=== PATIENT | male | born 1980 | race Caucasian/White ===

== ENCOUNTER → 2018-06-24 16:35 | Outpatient (CLI) | payer OTHER, SELFPAY | PROVIDERS: Visit Provider Physician Assistant | DX: J02.9 Acute pharyngitis, unspecified (principal) | CPT/HCPCS: 87070 ==

== ENCOUNTER 2018-06-25 09:51 | Emergency (ER) | payer OTHER, SELFPAY ==
[2018-06-25 10:07] VITALS: BP 158/84; PULSE 78; RESP 18; TEMP 36.7; O2SAT 100
--- NOTE | 2018-06-25 11:25 | PC.NURSE ---
pt reports sorethoat for 1.5 week, increasing pain, worsen with swallowing. seen at [facility] yesterday, strep negative, pt reports, not sleeping due to pain, today with one episode of coughing up bright red blood (small amount), also noted left lymph node swelling, ear preassure.
--- NOTE | 2018-06-25 12:09 | ED.URI ---
HPI - URI/Sore Throat <Jazmin Selby PA-C - Last Filed: 06/25/18 14:27> General Chief Complaint: Upper Respiratory Symptoms Stated Complaint: Bloody mucus, sore throat Time Seen by Provider: 06/25/18 12:09 Source: patient Mode of arrival: ambulatory Limitations: no limitations History of Present Illness HPI Narrative: This healthy 37-year-old male returns due to worsening left-sided sore throat and left ear discomfort. He states that about 10 days ago he came down with a milder, more scratchy sore throat. He states he was bringing up a little bit of greenish mucus in the mornings, thought this would be atypical cold. He has had no daytime cough. He did has not had any nasal congestion or sinus pain. He woke morning with a much more severe ?razor blade? sore throat that felt like it was behind his tonsils. He states it is been harder to swallow and sleep due to the pain. He states that he does not have body aches. He denies dyspnea or wheeze. He brought up a little bit of blood tinge with the mucus this morning but has not had increased cough. He states that he did have some sweats last night but no fever this morning when he checked his temperature. He states that he traveled by air domestically a few weeks ago, and then last week, and actually came home due to the throat pain. He denies any other new symptoms such as rash. He was seen at the walk-in clinic yesterday and rapid strep was negative, culture sent to the lab is still pending. He states that they advised him to come back over the weekend if worsening and was concerned about the blood. Related Data Previous Rx's Medication Instructions Recorded azithromycin [Zithromax] See Rx Instructions .ROUTE 06/25/18 .COMPLEX #6 tab lidocaine HCl [Lidocaine Viscous] 10 ml PO Q4HR PRN #150 ml 06/25/18 Allergies Allergy/AdvReac Type Severity Reaction Status Date / Time No Known Drug Allergies Allergy Verified 06/24/18 14:57 Review of Systems <NAIMA Corey Last Filed: 06/25/18 14:27> Review of Systems ROS Unobtainable: All systems reviewed & are unremarkable except as noted in HPI and below PFSH <Jazmin Selby PA-C - Last Filed: 06/25/18 14:27> Medical History Healthy adult male (Chronic) No pertinent family history (Chronic) Surgical History Lesion of parotid gland (Resolved) Status post knee surgery (Resolved) No pertinent past surgical history (Inactive) Social History Smoking Status: Never smoker Social History Smoking Status: Never smoker Exam <Jazmin Selby PA-C - Last Filed: 06/25/18 14:27> Narrative Exam Narrative: GENERAL APPEARANCE: Patient sitting comfortably, in no distress. HEAD: No sinus TTP. EYES: PERRL, EOMI. EARS: Normal auditory canals, TMS intact with normal light reflex on the right, left is retracted and erythematous ORAL CAVITY: Normal oropharynx. THROAT: Erythematous without exudate NECK/THYROID: Neck supple, full range of motion, shotty tender anterior cervical lymphadenopathy, more prominent on the left. No posterior nodes LUNGS: Clear to auscultation bilaterally, no cough on exam. HEART: RRR without murmur, nl S1, S2, no S3 or S4. DERMATOLOGIC: No exanthem Initial Vital Signs Initial Vital Signs: Vital Signs Temperature 98.0 F 06/25/18 10:07 Pulse Rate 78 06/25/18 10:07 Respiratory Rate 18 06/25/18 10:07 Blood Pressure 158/84 H 06/25/18 10:07 Pulse Oximetry 100 06/25/18 10:07 <Barbara Santoyo DO - Last Filed: 06/26/18 07:35> Initial Vital Signs Initial Vital Signs: Vital Signs Temperature 98.0 F 06/25/18 10:07 Pulse Rate 78 06/25/18 10:07 Respiratory Rate 18 06/25/18 10:07 Blood Pressure 158/84 H 06/25/18 10:07 Pulse Oximetry 100 06/25/18 10:07 Course <Jazmin Selby PA-C - Last Filed: 06/25/18 14:27> Vital Signs - 8 hr 06/25/18 10:07 06/25/18 12:44 Temperature 98.0 F Pulse Rate 78 68 Respiratory Rate 18 16 Blood Pressure 158/84 H 129/84 Pulse Oximetry 100 99 <Barbara Santoyo DO - Last Filed: 06/26/18 07:35> Vital Signs - 8 hr 06/25/18 10:07 06/25/18 12:44 Temperature 98.0 F Pulse Rate 78 68 Respiratory Rate 18 16 Blood Pressure 158/84 H 129/84 Pulse Oximetry 100 99 Discharge Plan Departure Patient Disposition: Home Clinical Impression: Otitis media Qualifiers: Otitis media type: unspecified Chronicity: acute Qualified Code(s): H66.90 - Otitis media, unspecified, unspecified ear Pharyngitis Qualifiers: Pharyngitis/tonsillitis etiology: unspecified etiology Qualified Code(s): J02.9 - Acute pharyngitis, unspecified Discharge Date/Time: 06/25/18 12:45 Interventions: ED Discharge Assessment Last Done: 06/25/18 12:44 Instructions: Middle Ear Infection, DI for Pharyngitis/Tonsillopharyngitis -- Adult Activity Restrictions/Additional Instructions: As we talked about, you should return if you have any acutely worsening symptoms or new symptoms such as difficulty breathing or high fever not responding to rekl-[id number] medicines. I suspect that your initial symptoms were due to a virus, however it is not clear whether the new discomfort in your ear and left side of your throat are a bacterial infection on top of this, so it is reasonable to try an antibiotic. I have sent in a prescription for antibiotic to [facility] for you as well as some topical anesthetic to use for her throat to make it easier to eat and swallow. In addition, please pickler helper some [id number] naproxen (Aleve), and you can take 2 tablets twice daily to help with pain and inflammation. If you are not feeling better in the next 5 days, please contact your insurance for a referral to a local PCP or follow up at the walk in clinic if you prefer Prescriptions: New azithromycin [Zithromax] 250 mg tablet See Rx Instructions .ROUTE .COMPLEX Qty: 6 RF: 0 lidocaine HCl [Lidocaine Viscous] 2 % solution 10 ml PO Q4HR PRN (Reason: sore throat) Qty: 150 RF: 0 <Barbara Santoyo DO - Last Filed: 06/26/18 07:35> Cosign ED Attending Cosvarunature Attestation: I was immediately available in the department for consultation. Documentation has been reviewed. I agree with assessment and plan.
[2018-06-25 12:44] VITALS: BP 129/84; PULSE 68; RESP 16; O2SAT 99
== END 2018-06-25 12:45 | disposition home or self-care (01) ==
PROVIDERS: Emergency Provider Internal Medicine
DX: H66.90 Otitis media, unspecified, unspecified ear (principal); J02.9 Acute pharyngitis, unspecified
CPT/HCPCS: 99282; 99283

== ENCOUNTER → 2018-12-13 10:12 | Outpatient (CLI) | payer OTHER, SELFPAY ==
--- NOTE | 2018-12-13 | DI.CT.S_ITS ---
PROCEDURE: CT SOFT TISSUE NECK W CON INDICATIONS: Glossodynia TECHNIQUE: After the administration of intravenous contrast, 3.0 mm axial sections acquired from the sella to the aortic arch. Additional oblique axial 3.0 mm sections acquired through the pharynx. 3 mm thick coronal and sagittal reformats were generated. For radiation dose reduction, the following was used: automated exposure control. COMPARISON: None. FINDINGS: Image quality: Excellent. Lymph nodes: No enlarged lymph nodes seen throughout the neck. Vessels: Visualized vasculature appears patent. Neck spaces: In this patient with this given history, scrutiny is given to the tongue. No significant abnormality of the tongue can be seen. The oropharynx, nasopharynx, and pharynx demonstrate no mucosal lesions. The vocal cords, false vocal cords, pyriform sinuses, epiglottis, and the vallecula all appear normal. Extramucosal spaces appear unremarkable. Glands: The parotid and submandibular glands appear normal. Thyroid gland demonstrates no significant CT abnormality. Miscellaneous: Visualized brain and orbits appear normal. Lung apices appear clear. Superficial soft tissues appear normal. Bones: No suspicious bony lesions. Visualized sinuses and mastoids appear unremarkable. IMPRESSION: Unremarkable examination, without CT abnormality of the tongue identified. Dictated by: Micky Williamson M.D. on 12/13/2018 at 11:31 Approved by: Micky Williamson M.D. on 12/13/2018 at 11:33
== END ==
PROVIDERS: Visit Provider Specialist
DX: K14.6 Glossodynia (principal)
CPT/HCPCS: 70491; Q9967

== ENCOUNTER → 2019-05-26 15:19 | Outpatient (CLI) | payer OTHER, SELFPAY ==
[2019-05-26 15:55] LABS: Influenza A - CEPHEID Flu A POSITIVE (NEGATIVE); Influenza B - CEPHEID Flu B NEGATIVE (NEGATIVE)
== END ==
PROVIDERS: Visit Provider Physician Assistant
DX: R50.9 Fever, unspecified (principal)
CPT/HCPCS: 87502

== ENCOUNTER → 2019-10-12 07:39 | Outpatient (CLI) | payer OTHER, SELFPAY ==
--- NOTE | 2019-10-12 | DI.CT.S_ITS ---
PROCEDURE: CT SINUS SCREEN WO CON INDICATIONS: Other chronic sinusitis TECHNIQUE: Noncontrast 3.0 mm axial images acquired from the frontal sinuses to the mid-sella, with coronal and sagittal reformats. For radiation dose reduction, the following was used: automated exposure control, adjustment of mA and/or kV according to patient size. COMPARISON: None. FINDINGS: Image quality: Excellent. Maxillary Sinuses: No bony remodeling or destruction. Sinuses are clear except for a small posterolateral mucus retention cyst within the right maxillary sinus, without air fluid level.. Ethmoid Air Cells: No bony remodeling or destruction. Sinuses are clear. Sphenoid Sinuses: No bony remodeling or destruction. Sinuses are clear. Frontal Sinuses: No bony remodeling or destruction. Sinuses are clear. Ostiomeatal Complexes: Ostiomeatal complexes are patent. No Ramo cells. Miscellaneous: Visualized intra-orbital contents are normal. No gurpreet bullosa or paradoxical turbinate curvature. Mild leftward nasal septal deviation with associated slight left nasal airway stenosis.. o IMPRESSION: A small chronic appearing mucus retention cyst is present at the posterolateral border of the right maxillary sinus. Note is made of a small degree of leftward deviation of the midline nasal septum with associated slight left nasal airway stenosis. No prior trauma, no sign of mastoiditis. Dictated by: Zi Gómez M.D. on 10/12/2019 at 11:14 Approved by: iZ Gómez M.D. on 10/12/2019 at 11:17
== END ==
PROVIDERS: PCP Family Medicine; Referring Provider Otolaryngology; Visit Provider Otolaryngology
DX: J32.8 Other chronic sinusitis (principal); R51 Headache; J34.1 Cyst and mucocele of nose and nasal sinus; J34.2 Deviated nasal septum
CPT/HCPCS: 70486

== ENCOUNTER → 2020-07-17 07:59 | Outpatient (CLI) | payer OTHER, SELFPAY ==
--- NOTE | 2020-07-17 08:01 | DI.RAD.S_ITS ---
PROCEDURE: XR KNEE RT 3V INDICATIONS: Right knee pain/grinding TECHNIQUE: 3 views of the knee were acquired. COMPARISON: None. FINDINGS: Bones: No fracture. Scattered degenerative subchondral sclerosis and spurring. Postsurgical changes with intact screws projecting in the proximal tibia. Bipartite appearance of the patella which could be chronic fracture or developmental. Soft tissues: No joint effusion. No suspicious soft tissue calcifications. IMPRESSION: Bipartite appearance of the patella, probably chronic. If the patient's pain or other symptoms persist, consider further evaluation with MRI Scattered degenerative and postsurgical changes as above. Dictated by: Jean Marie Mendoza M.D. on 07/17/2020 at 8:47 Approved by: Jean Marie Mendoza M.D. on 07/17/2020 at 8:56
== END ==
PROVIDERS: PCP Family Medicine; Referring Provider Student in an Organized Health Care Education/Training Program; Visit Provider Student in an Organized Health Care Education/Training Program
DX: M25.561 Pain in right knee (principal)
CPT/HCPCS: 73562

== ENCOUNTER → 2020-07-24 09:18 | Outpatient (CLI) | payer OTHER, SELFPAY ==
--- NOTE | 2020-07-24 09:18 | DI.US.S_ITS ---
PROCEDURE: US SCROTUM INDICATIONS: testicular pain TECHNIQUE: Real-time scanning was performed of the scrotum and testicles, with image documentation. Color and pulse Doppler interrogation was performed of both testicles. COMPARISON: None. FINDINGS: Right: Testicle is normal in size at 5.6 x 3.4 x 2.2 cm, and homogenous in echotexture. Epididymis is normal in overall size and morphology. No hydrocele or varicoceles. Overlying scrotal skin is normal in thickness. Left: Testicle is normal in size at 5.0 x 3.6 x 2.4 cm, and homogeneous in echotexture. Epididymis is normal in overall size and morphology. Small epididymal cyst measuring 0.4 x 0.2 x 0.2 cm. No hydrocele or varicoceles. Overlying scrotal skin is normal in thickness. Doppler: Color and pulse Doppler demonstrate normal and symmetric arterial flow in both testicles. IMPRESSION: Unremarkable scrotal ultrasound with no evidence of testicular torsion, testicular mass, orchitis, or epididymitis. Dictated by: Mahesh Schmitz M.D. on 07/24/2020 at 10:27 Approved by: Mahesh Schmitz M.D. on 07/24/2020 at 10:37
== END ==
PROVIDERS: PCP Family Medicine; Referring Provider Family Medicine; Visit Provider Family Medicine
DX: N50.812 Left testicular pain (principal)
CPT/HCPCS: 76870